=== PATIENT | male | born 1990 | race Caucasian/White ===

== ENCOUNTER 2019-10-26 08:17 | Emergency (ER) | payer OTHER ==
[2019-10-26] MEDS ORDERED: Aspirin 81 MG Tab.Chew PO ONE (08:53)
--- NOTE | 2019-10-26 08:58 | EDM.PDOC ---
ED HPI GENERAL MEDICAL PROBLEM - General Chief Complaint: Chest Pain Stated Complaint: CHEST PAIN Time Seen by Provider: 10/26/19 08:45 Source of Information: Reports: Patient History Limitations: Reports: No Limitations - History of Present Illness INITIAL COMMENTS - FREE TEXT/NARRATIVE: This 29 yo male patient reports to the ED with left upper chest pain that radiates to his left posterior shoulder. The patient reports his symptoms started this morning at about 0630 and have continued since that time. The patient reports reduced pain with rest, but increased pain with movement. The patient reports his father of a heart attack at age 37. The patient reports his symptoms started this morning while he was working out. The patient reports he has not been working out lately, but was trying to get back into working out. Onset: Today Onset Date: 10/26/19 Onset Time: 06:30 Duration: Intermittent Location: Reports: Chest (left upper chest into left posterior shoulde) Quality: Reports: Ache, Sharp, Stabbing Severity: Moderate Improves with: Reports: Rest Worsens with: Reports: Movement Context: Reports: Other Associated Symptoms: Reports: Chest Pain Treatments DIRECTOR VIDEO: Denies: Acetaminophen, Aspirin, NSAIDS Left Upper Chest Pain Score (Numeric/FACES): 7 - Related Data Allergies Allergy/AdvReac Type Severity Reaction Status Date / Time No Known Allergies Allergy Verified 10/26/19 08:34 Home Meds: Home Meds . [No Known Home Meds] 10/26/19 [History] Past Medical History - Past Health History Medical/Surgical History: Denies Medical/Surgical History Social & Family History - Tobacco Use Smoking Status *Q: Never Smoker - Alcohol Use Days Per Week of Alcohol Use: 2 Number of Drinks Per Day: 3 Total Drinks Per Week: 6 - Recreational Drug Use Recreational Drug Use: No ED ROS GENERAL - Review of Systems Review Of Systems: Comprehensive ROS is negative, except as noted in HPI. ED EXAM, GENERAL - Physical Exam Exam: See Below Exam Limited By: No Limitations General Appearance: Alert, WD/WN, Anxious, Mild Distress Eye Exam: Bilateral Eye: EOMI, Normal Inspection, PERRL Ears: Normal External Exam, Normal Canal, Hearing Grossly Normal, Normal TMs Nose: Normal Inspection, Normal Mucosa, No Blood Throat/Mouth: Normal Inspection Head: Atraumatic, Normocephalic Neck: Normal Inspection, Supple, Non-Tender, Full Range of Motion Respiratory/Chest: No Respiratory Distress, Lungs Clear, Normal Breath Sounds, No Accessory Muscle Use, Other (left upper chest wall tenderness to palpation) Cardiovascular: Normal Peripheral Pulses, Regular Rate, Rhythm, No Edema, No Gallop, No JVD, No Murmur, No Rub GI/Abdominal: Normal Bowel Sounds, Soft, Non-Tender, No Organomegaly, No Distention, No Abnormal Bruit, No Mass (Male) Exam: Deferred Rectal (Males) Exam: Deferred Extremities: Normal Inspection, Normal Range of Motion, Non-Tender, Normal Capillary Refill, No Pedal Edema Neurological: Alert, Oriented, CN II-XII Intact, Normal Cognition, Normal Gait, Normal Reflexes, No Motor/Sensory Deficits Psychiatric: Normal Affect, Normal Mood Skin Exam: Warm, Dry, Intact, Normal Color, No Rash Lymphatic: No Adenopathy Course - Vital Signs Last Recorded V/S: Last Vital Signs Temp 36.6 C 10/26/19 12:50 Pulse 80 10/26/19 12:50 Resp 16 10/26/19 12:50 BP 124/66 10/26/19 12:50 Pulse Ox 100 10/26/19 12:50 - Orders/Labs/Meds Orders: Active Orders 24 hr Category Date Time Status EKG Documentation Completion [RC] URGENT Care 10/26/19 08:26 Ordered EKG Documentation Completion [RC] URGENT Care 10/26/19 12:35 Ordered Labs: Laboratory Tests 10/26/19 10/26/19 10/26/19 Range/Units 08:35 08:35 08:46 WBC 11.1 H (5.0-10.0) 10^3/uL RBC 5.16 (4.6-6.2) 10^6/uL Hgb 15.1 (14.0-18.0) g/dL Hct 43.0 (40.0-54.0) % MCV 83.3 (80-100) fL MCH 29.3 (27.0-34.0) pg MCHC 35.1 H (33.0-35.0) g/dL Plt Count 266 (150-450) 10^3/uL Neut % (Auto) 65.7 (42.2-75.2) % Lymph % (Auto) 19.1 L (20.5-50.1) % [place] % (Auto) 8.9 H (2-8) % Eos % (Auto) 6.0 H (1.0-3.0) % Baso % (Auto) 0.3 (0.0-1.0) % Sodium 137 (135-145) mmol/L Potassium 3.8 (3.6-5.0) mmol/L Chloride 103 (101-111) mmol/L Carbon Dioxide 24.0 (21.0-31.0) mmol/L Anion Gap 13.8 BUN 21 H (7-18) mg/dL Creatinine 0.8 (0.6-1.3) mg/dL Est Cr Clr Drug Dosing 138.14 mL/min Estimated GFR (MDRD) > 60 BUN/Creatinine Ratio 26.25 Glucose 88 (74-105) mg/dL Calcium 9.9 (8.4-10.2) mg/dl Total Bilirubin 0.7 (0.2-1.0) mg/dL AST 57 H (10-42) IU/L ALT 77 H (10-60) IU/L Alkaline Phosphatase 71 (42-121) IU/L Troponin I < 0.02 (0.00-0.02) ng/ml Total Protein 8.1 (6.7-8.2) g/dl Albumin 4.5 (3.2-5.5) g/dl Globulin 3.6 Albumin/Globulin Ratio 1.25 Urine Color Light yellow (YELLOW) Urine Appearance Clear (CLEAR) Urine pH 6.5 (5.0-9.0) Ur Specific [place] 1.010 (1.005-1.030) Urine Protein Negative (NEGATIVE) Urine Glucose (UA) Negative (NEGATIVE) Urine Ketones Negative (NEGATIVE) Urine Occult Blood Negative (NEGATIVE) Urine Nitrite Negative (NEGATIVE) Urine Bilirubin Negative (NEGATIVE) Urine Urobilinogen 0.2 (0.2-1.0) mg/dL Ur Leukocyte Esterase Negative (NEGATIVE) Urine Opiates Screen (NEGATIVE) Ur Oxycodone Screen (NEGATIVE) Urine Methadone Screen (NEGATIVE) Ur Barbiturates Screen (NEGATIVE) U Tricyclic Antidepress (NEGATIVE) Ur Phencyclidine Scrn (NEGATIVE) Ur Amphetamine Screen (NEGATIVE) U Methamphetamines Scrn (NEGATIVE) Urine MDMA Screen (NEGATIVE) U Benzodiazepines Scrn (NEGATIVE) Urine Cocaine Screen (NEGATIVE) U Marijuana (THC) Screen (NEGATIVE) 10/26/19 10/26/19 Range/Units 08:46 12:40 WBC (5.0-10.0) 10^3/uL RBC (4.6-6.2) 10^6/uL Hgb (14.0-18.0) g/dL Hct (40.0-54.0) % MCV (80-100) fL MCH (27.0-34.0) pg MCHC (33.0-35.0) g/dL Plt Count (150-450) 10^3/uL Neut % (Auto) (42.2-75.2) % Lymph % (Auto) (20.5-50.1) % [place] % (Auto) (2-8) % Eos % (Auto) (1.0-3.0) % Baso % (Auto) (0.0-1.0) % Sodium (135-145) mmol/L Potassium (3.6-5.0) mmol/L Chloride (101-111) mmol/L Carbon Dioxide (21.0-31.0) mmol/L Anion Gap BUN (7-18) mg/dL Creatinine (0.6-1.3) mg/dL Est Cr Clr Drug Dosing mL/min Estimated GFR (MDRD) BUN/Creatinine Ratio Glucose (74-105) mg/dL Calcium (8.4-10.2) mg/dl Total Bilirubin (0.2-1.0) mg/dL AST (10-42) IU/L ALT (10-60) IU/L Alkaline Phosphatase (42-121) IU/L Troponin I < 0.02 (0.00-0.02) ng/ml Total Protein (6.7-8.2) g/dl Albumin (3.2-5.5) g/dl Globulin Albumin/Globulin Ratio Urine Color (YELLOW) Urine Appearance (CLEAR) Urine pH (5.0-9.0) Ur Specific [place] (1.005-1.030) Urine Protein (NEGATIVE) Urine Glucose (UA) (NEGATIVE) Urine Ketones (NEGATIVE) Urine Occult Blood (NEGATIVE) Urine Nitrite (NEGATIVE) Urine Bilirubin (NEGATIVE) Urine Urobilinogen (0.2-1.0) mg/dL Ur Leukocyte Esterase (NEGATIVE) Urine Opiates Screen Negative (NEGATIVE) Ur Oxycodone Screen Negative (NEGATIVE) Urine Methadone Screen Negative (NEGATIVE) Ur Barbiturates Screen Negative (NEGATIVE) U Tricyclic Antidepress Negative (NEGATIVE) Ur Phencyclidine Scrn Negative (NEGATIVE) Ur Amphetamine Screen Negative (NEGATIVE) U Methamphetamines Scrn Negative (NEGATIVE) Urine MDMA Screen Negative (NEGATIVE) U Benzodiazepines Scrn Negative (NEGATIVE) Urine Cocaine Screen Negative (NEGATIVE) U Marijuana (THC) Screen Negative (NEGATIVE) Meds: Medications Discontinued Medications Generic Name Dose Route Start Last Admin Trade Name Freq PRN Reason Stop Dose Admin Aspirin 324 mg 10/26/19 08:53 10/26/19 09:08 Aspirin PO 10/26/19 08:54 324 mg ONETIME ONE Administration Departure - Departure Time of Disposition: 13:39 Disposition: Home, Self-Care 01 Condition: Fair Clinical Impression: Nonspecific chest pain Chest wall muscle strain Qualifiers: Encounter type: initial encounter Qualified Code(s): S29.011A - Strain of muscle and tendon of front wall of thorax, initial encounter Instructions: Nonspecific Chest Pain, [id number], Chest Wall Pain, Easy-to- Read Forms: ED Department Discharge Care Plan Goals: The patient was advise of the examination, lab, EKG, repeat lab and repeat EKG results during the visit. The patient was encouraged to take Tylenol or ibuprofen as directed for temporary symptom relief. If the patient has any additional symptoms or concerns, the patient should either return to the emergency department or visit his primary care facility. - My Orders Last 24 Hours: My Active Orders 10/26/19 08:26 EKG Documentation Completion [RC] URGENT 10/26/19 12:35 EKG Documentation Completion [RC] URGENT - Assessment/Plan Last 24 Hours: My Active Orders 10/26/19 08:26 EKG Documentation Completion [RC] URGENT 10/26/19 12:35 EKG Documentation Completion [RC] URGENT
[2019-10-26 09:05] LABS: ANION GAP 13.8; CHLORIDE,CL 103 mmol/L (101-111); SODIUM,NA 137 mmol/L (135-145)
--- NOTE | 2019-10-26 09:53 | CR ---
EXAMINATION: Chest 1V Frontal SEX: Male AGE: 29 years CLINICAL HISTORY: 29-year-old male complaining of left upper chest pain. 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 Normal cardiac silhouette and bony thorax. 2. No pulmonary vascular congestion, alveolar edema or dependent effusion. 3. No lung mass or hilar lymphadenopathy. 4. No focal lobar infiltrate, atelectasis or collapse. 5. No pneumothorax. CONCLUSION: Negative exam.
== END 2019-10-26 14:01 | disposition home or self-care (01) ==
LOC: DL.ED 08:17
DX: S29.011A Strain of muscle and tendon of front wall of thorax, initial encounter (principal); X58.XXXA Exposure to other specified factors, initial encounter; Y93.B9 Activity, other involving muscle strengthening exercises
CPT/HCPCS: 36415; 71045; 80053; 80305-QW; 81003; 84484; 85025; 93005; 99282; 99285-25; A9270-GY

== ENCOUNTER 2020-05-14 08:19 | Emergency (ER) | payer OTHER ==
--- NOTE | 2020-05-14 08:36 | EDM.PDOC ---
ED HPI GENERAL MEDICAL PROBLEM - General Stated Complaint: injured left thumb - nail off Time Seen by Provider: 05/14/20 08:31 Source of Information: Reports: Patient, RN, RN Notes Reviewed History Limitations: Reports: No Limitations - History of Present Illness INITIAL COMMENTS - FREE TEXT/NARRATIVE: Patient presents to ER with complaint of missing nail to the left thumb. Patient states a few days ago the nail to the left thumb cracked and was peeling away so he pulled it off at the base. And has been keeping the area clean has been putting antibiotic ointment on it and wrapping it. Today the nailbed is protruding from under the nail with purulent drainage. The thumb is erythematous and swollen. Onset: Sudden - Related Data Allergies Allergy/AdvReac Type Severity Reaction Status Date / Time No Known Allergies Allergy Verified 05/14/20 08:35 Home Meds: Home Meds . [No Known Home Meds] 10/26/19 [History] Past Medical History - Past Health History Medical/Surgical History: Denies Medical/Surgical History ED ROS GENERAL - Review of Systems Review Of Systems: Comprehensive ROS is negative, except as noted in HPI. ED EXAM, GENERAL - Physical Exam Exam: See Below Exam Limited By: No Limitations General Appearance: Alert, WD/WN, No Apparent Distress Eye Exam: Bilateral Eye: EOMI, Normal Inspection Ears: Normal External Exam, Hearing Grossly Normal Nose: Normal Inspection Throat/Mouth: Normal Inspection, Normal Voice, No Airway Compromise Head: Atraumatic, Normocephalic Neck: Normal Inspection, Supple, Non-Tender, Full Range of Motion Respiratory/Chest: No Respiratory Distress, Lungs Clear, Normal Breath Sounds, No Accessory Muscle Use, Chest Non-Tender Cardiovascular: Normal Peripheral Pulses, Regular Rate, Rhythm, No Edema, No Gallop, No JVD, No Murmur, No Rub Peripheral Pulses: 2+: Radial (L), Radial (R) GI/Abdominal: Normal Bowel Sounds, Soft, Non-Tender (Male) Exam: Deferred Rectal (Males) Exam: Deferred Back Exam: Normal Inspection, Full Range of Motion, NT Extremities: Normal Inspection, Normal Range of Motion, Non-Tender, Normal Capillary Refill, No Pedal Edema Neurological: Alert, Oriented, CN II-XII Intact, Normal Cognition, Normal Gait, Normal Reflexes, No Motor/Sensory Deficits Psychiatric: Normal Affect, Normal Mood Skin Exam: Warm, Dry, Normal Color, No Rash, Other (base of nail to the left thumb missing. Nail bed protruding out with purulent drainage. Left thumb is reddened and swollen.) Lymphatic: No Adenopathy Course - Vital Signs Last Recorded V/S: Last Vital Signs Temp 97.2 F 05/14/20 08:35 Pulse 71 05/14/20 08:35 Resp 16 05/14/20 08:35 BP 143/74 H 05/14/20 08:35 Pulse Ox 100 05/14/20 08:35 Departure - Departure Time of Disposition: 08:48 Disposition: Home, Self-Care 01 Condition: Good Clinical Impression: Paronychia of finger Qualifiers: Laterality: left Qualified Code(s): L03.012 - Cellulitis of left finger - Discharge Information *PRESCRIPTION DRUG MONITORING PROGRAM REVIEWED*: No *COPY OF PRESCRIPTION DRUG MONITORING REPORT IN PATIENT ANNMARIE: No Instructions: Paronychia, [id number] Referrals: Zina Velez MD [Primary Care Provider] - Forms: ED Department Discharge Additional Instructions: RX: Cephalexin May use Tylenol and/or Ibuprofen as directed for pain Follow up with your primary care facility and Dermatology for further management Sepsis Event Note (ED) - Focused Exam Vital Signs: Vital Signs Temp Pulse Resp BP Pulse Ox 05/14/20 08:35 97.2 F 71 16 143/74 H 100
== END 2020-05-14 08:55 | disposition home or self-care (01) ==
LOC: DL.ED 08:19
DX: L03.012 Cellulitis of left finger (principal)
CPT/HCPCS: 99282; 99283

== ENCOUNTER 2020-05-14 17:35 | Emergency (ER) | payer OTHER ==
[2020-05-14] MEDS ORDERED: Bacitracin/Polymyxin B Ophth Oint 3.5 GM Tube EYELF ONE (17:36)
[2020-05-14] MEDS ORDERED: Tetracaine HCl/PF 0.5% 4 ML Bottle EYELF ONE (19:08)
[2020-05-14] MEDS ORDERED: Fluorescein 1 MG Ophth Strip EYELF ONE (19:08)
--- NOTE | 2020-05-14 19:10 | EDM.PDOC ---
ED HPI GENERAL MEDICAL PROBLEM - General Chief Complaint: Eye Problems Stated Complaint: eye problems Time Seen by Provider: 05/14/20 19:00 Source of Information: Reports: Patient History Limitations: Reports: No Limitations - History of Present Illness INITIAL COMMENTS - FREE TEXT/NARRATIVE: Drilling hole in wood for conduit line while at [employer] ,felt something in eye, flushed continued discomfort and vision seems blurry. Left Eye Pain Score (Numeric/FACES): 8 - Related Data Allergies Allergy/AdvReac Type Severity Reaction Status Date / Time No Known Allergies Allergy Verified 05/14/20 18:44 Home Meds: Home Meds . [No Known Home Meds] 10/26/19 [History] Past Medical History - Past Health History Medical/Surgical History: Denies Medical/Surgical History Hematologic History: Reports: Hemochromatosis Social & Family History - Tobacco Use Smoking Status *Q: Never Smoker Second Hand Smoke Exposure: No - Recreational Drug Use Recreational Drug Use: No ED ROS GENERAL - Review of Systems Review Of Systems: Comprehensive ROS is negative, except as noted in HPI. ED EXAM GENERAL W FULL EYE - Physical Exam Exam: See Below Exam Limited By: No Limitations General Appearance: Alert, Mild Distress Eye Exam: Left Eye: Vision Changes, Bilateral Eye: EOMI, PERRL Visual Acuity (R) 20/: 20 Visual Acuity (L) 20/: 70 With Correction: Yes Eyelids: Left: Lid Everted for Exam, Bilateral: Normal Appearance Conjunctiva & Sclera: Right: Normal Appearance, Left: Injected Cornea Exam: Left: Examined with Flourescein Extraocular Movements: Bilateral: Intact Pupils: Normal Accommodation Pupillary Size: Bilateral: 4 mm Pupillary Reaction: Bilateral: Brisk Ears: Normal External Exam Nose: Normal Inspection Throat/Mouth: Normal Inspection Head: Atraumatic Neck: Full Range of Motion Respiratory/Chest: Normal Breath Sounds Cardiovascular: Regular Rate, Rhythm Extremities: Normal Range of Motion Neurological: Alert, Oriented Psychiatric: Normal Affect Skin Exam: Warm, Dry, Intact Course - Vital Signs Last Recorded V/S: Last Vital Signs Temp 97.1 F 05/14/20 18:41 Pulse 84 05/14/20 18:41 Resp 18 05/14/20 18:41 BP 142/89 H 05/14/20 18:41 Pulse Ox 96 05/14/20 18:41 - Orders/Labs/Meds Meds: Medications Discontinued Medications Generic Name Dose Route Start Last Admin Trade Name Casa PRN Reason Stop Dose Admin Bacitracin/Polymyxin B Sulfate Confirm 05/14/20 19:57 05/14/20 20:01 Polysporin Ophth Oint Administered 05/14/20 19:58 Not Given Dose 3.5 gm .ROUTE .STK-MED ONE Bacitracin/Polymyxin B Sulfate 3.5 gm 05/14/20 17:36 Polysporin Ophth Oint EYELF 05/14/20 17:37 .STK-MED ONE Fluorescein Sodium 1 mg 05/14/20 19:08 05/14/20 19:42 Ful-Lisa EYELF 05/14/20 19:09 1 mg ONETIME ONE Administration Tetracaine HCl 1 ml 05/14/20 19:08 05/14/20 19:40 Tetracaine 0.5% Steri-Unit Angela EYELF 05/14/20 19:09 2 drop ASDIRECTED ONE Administration Departure - Departure Time of Disposition: 20:00 Disposition: Home, Self-Care 01 Condition: Good Clinical Impression: Irritation of left eye - Discharge Information *PRESCRIPTION DRUG MONITORING PROGRAM REVIEWED*: No *COPY OF PRESCRIPTION DRUG MONITORING REPORT IN PATIENT ANNMARIE: No Forms: ED Department Discharge Additional Instructions: dark glasses limit excessive eye movement, limit tv, computer use tonight tylenol or ibuprofen alternating every 4 hours as needed for discomfort polysporin opth ointment, thin film 3 times daily follo up with eye clinic in am Sepsis Event Note (ED) - Evaluation Sepsis Screening Result: No Definite Risk
[2020-05-14] MEDS ORDERED: Bacitracin/Polymyxin B Ophth Oint 3.5 GM Tube ONE (19:57)
== END 2020-05-14 20:07 | disposition home or self-care (01) ==
LOC: DL.ED 17:35
DX: H57.89 Other specified disorders of eye and adnexa (principal)
CPT/HCPCS: 99283; A9270

== ENCOUNTER 2023-02-22 08:05 | Emergency (ER) | payer OTHER ==
[2023-02-22] MEDS ORDERED: Ketorolac 30 MG/ML SDV IVPUSH ONE (08:14)
[2023-02-22] MEDS ORDERED: Sodium Chloride 0.9% 1,000 ML IV ONE (08:14)
[2023-02-22] MEDS ORDERED: Sodium Chloride 0.9% 10 ML Syringe FLUSH PRN (08:14)
[2023-02-22] MEDS ORDERED: Ondansetron 4 MG/2 ML SDV IVPUSH ONE (08:17)
[2023-02-22] MEDS ORDERED: Morphine 4 MG/ML Syringe IVPUSH ONE (08:17)
[2023-02-22 08:49] LABS: CHLORIDE,CL 106 mmol/L (98-107); SODIUM,NA 142 mmol/L (136-145)
[2023-02-22 08:50] LABS: ESTIMATED GFR 87 mL/min (>=60)
== END 2023-02-22 10:37 | disposition home or self-care (01) ==
LOC: DL.ED 08:05
DX: N20.1 Calculus of ureter (principal)
CPT/HCPCS: 36415; 74176; 80053; 81001; 85025; 96361; 96374; 99284; 99284-25; J1885; J3490; J7030

== ENCOUNTER 2025-08-02 06:15 | Emergency (ER) | payer OTHER ==
[2025-08-02] MEDS: Ketorolac 30 MG/ML SDV IM ONE (06:45)
== END 2025-08-02 07:25 | disposition home or self-care (01) ==
LOC: DL.ED 06:15
DX: M54.50 Low back pain, unspecified (principal)
CPT/HCPCS: 96372; 99282; 99283; J1171; J1885